=== PATIENT | male | born 1980 | race Two or more races ===

== ENCOUNTER 2020-12-26 19:08 | Emergency (ER) | payer BC, MEDICAID ==
[~2020-12-26] VITALS: Ht 175.3 cm; Wt 93.0 kg
[2020-12-26 19:20] VITALS: BP 138/84
[2020-12-26] MEDS ORDERED: ACETAMINOPHEN/CODEINE#3 (300/30mg) TAB PO ONE (21:00)
[2020-12-26] MEDS ORDERED: ONDANSETRON ODT 4 MG TAB PO ONE (21:00)
== END 2020-12-26 21:37 | disposition home or self-care (01) ==
LOC: ER 19:11
DX: S83.91XA Sprain of unspecified site of right knee, initial encounter (principal); S63.92XA Sprain of unspecified part of left wrist and hand, initial encounter; X50.1XXA Overexertion from prolonged static or awkward postures, initial encounter; Y92.89 Other specified places as the place of occurrence of the external cause; Y93.89 Activity, other specified; Y99.8 Other external cause status
CPT/HCPCS: 29505; 73130; 73562; 99284; Q0162

== ENCOUNTER 2021-03-23 14:26 | Emergency (ER) | payer BC, MEDICAID ==
[~2021-03-23] VITALS: Ht 177.8 cm; Wt 93.9 kg
[2021-03-23] MEDS ORDERED: KETOROLAC TROMETH 60MG/2ML VIAL IM ONE (16:00)
[2021-03-23] MEDS ORDERED: methylPREDNISolone SOD SUCC 125 MG/2 ML VL IM ONE (16:00)
[2021-03-23 16:02] VITALS: BP 129/79
== END 2021-03-23 16:47 | disposition home or self-care (01) ==
LOC: ER 14:26
DX: M10.9 Gout, unspecified (principal)
CPT/HCPCS: 96372; 99284; J1885; J2930